=== PATIENT | male | born 1995 | race Caucasian/White ===

== ENCOUNTER 2019-06-21 17:54 | Emergency (ER) | payer SELFPAY ==
[2019-06-21] MEDS ORDERED: CLINDAMYCIN HCL 150 MG CAPSULE PO ONE (18:46)
[2019-06-21] MEDS ORDERED: HYDROCODONE/ACETAMINOPHEN 5-325 MG TABLET PO ONE (18:46)
--- NOTE | 2019-06-21 18:51 | ER Document Report ---
HPI - HPI Time Seen by Provider: 06/21/19 18:42 Notes: Otherwise healthy 24-year-old male presenting to the emergency department chief complaint of dental pain. Patient reports pain in the right lower side of his mouth. He thinks he got a piece of food stuck a few days ago and has had pain s jamel then. Denies any direct trauma to the area, denies any fever. Past Medical History - General Information source: Patient - Social History Smoking Status: Never Smoker Frequency of alcohol use: None Drug Abuse: None Family History: Reviewed & Not Pertinent - Medical History Medical History: Negative Surgical Hx: Negative - Immunizations Immunizations up to date: Yes Vertical Provider Document - CONSTITUTIONAL Notes: PHYSICAL EXAMINATION: GENERAL: Well-appearing, well-nourished and in no acute distress. HEAD: Atraumatic, normocephalic. EYES: Pupils equal round extraocular movements intact, conjunctiva are normal. ENT: Nares patent, erythema and irritation noted around tooth #18 and 19, no obvious drainable abscess. No fluctuance. Mild facial swelling noted. No trismus NECK: Normal range of motion LUNGS: No respiratory distress Musculoskeletal: Normal range of motion NEUROLOGICAL: Normal speech, normal gait. PSYCH: Normal mood, normal affect. SKIN: Warm, Dry, normal turgor, no rashes or lesions noted. Course - Re-evaluation Re-evalutation: We will start patient on oral antibiotics for dental infection. Patient understands the need to follow-up with a dentist. - Vital Signs Vital signs: Temp Pulse Resp BP Pulse Ox 97.9 F 84 18 142/70 H 98 06/21/19 18:26 06/21/19 18:26 06/21/19 18:26 06/21/19 18:26 06/21/19 18:26 Discharge - Discharge Clinical Impression: Dental infection Condition: Stable Disposition: HOME, SELF-CARE Additional Instructions: You have been seen for dental pain. It is very important that you follow-up with a dentist for definitive care. Please return if you develop fever greater than 101, swelling in your face, vomiting, difficulty breathing or swallowing, or any other symptoms that are concerning to you. For pain you should take ibuprofen 800 mg every 8 hours as needed. Prescriptions: Clindamycin HCl 300 mg PO TID #21 capsule
[2019-06-21 19:44] VITALS: BP 130/74
== END 2019-06-21 19:49 | disposition home or self-care (01) ==
LOC: ER 17:54
DX: K04.7 Periapical abscess without sinus (principal); K08.89 Other specified disorders of teeth and supporting structures
CPT/HCPCS: 99282

== ENCOUNTER 2019-07-09 14:28 | Emergency (ER) | payer MEDICAID ==
[2019-07-09 14:53] VITALS: BP 157/86
--- NOTE | 2019-07-09 15:09 | ER Document Report ---
HPI - HPI Patient complains to provider of: DENTAL PAIN Time Seen by Provider: 07/09/19 15:00 Pain Level: 4 Context: 24-year-old male presents emergency department with complaints of dental pain to the right side of his lower mouth. Reports he needs his wisdom teeth removed. Reports he was here at the beginning of the month for the same took the antibiotics the swelling and pain went away but he was never able to follow-up with a dentist. He reports past couple days he started having swelling on the right side of his face again. He reports he plans on following up with the dentist within the next week. He reports fever but only at night. Not taking his temperature just sweating. Associated Symptoms: Fever - AT NIGHT ONLY Exacerbated by: Denies Relieved by: Denies Similar symptoms previously: Yes Recently seen / treated by doctor: Yes - REPRODUCTIVE Reproductive: DENIES: : Past Medical History - General Information source: Patient - Social History Smoking Status: Current Some Day Smoker Chew tobacco use (# tins/day): No Frequency of alcohol use: None Drug Abuse: None Occupation: [employer] Family History: Reviewed & Not Pertinent Patient has suicidal ideation: No Patient has homicidal ideation: No Pulmonary Medical History: Reports: Hx Asthma Past Surgical History: Reports: Hx Orthopedic Surgery - right elbow - Immunizations Immunizations up to date: Yes Vertical Provider Document - CONSTITUTIONAL Agree With Documented VS: Yes Exam Limitations: No Limitations General Appearance: WD/WN, No Apparent Distress - INFECTION CONTROL TRAVEL OUTSIDE OF THE [place] IN LAST 30 DAYS: No - HEENT HEENT: Atraumatic, Normocephalic. negative: Conjuctival Injection Mouth Diagram: 1 - Patient complains of pain opens mouth wide clear voice with some swelling no pustule noted no trismus no Emilio's - NECK Neck: Normal Inspection, Supple. negative: Lymphadenopathy-Left, Lymphadenopathy-Right - RESPIRATORY Respiratory: Breath Sounds Normal, No Respiratory Distress - CARDIOVASCULAR Cardiovascular: Regular Rate, Regular Rhythm - GI/ABDOMEN Gastrointestinal: Abdomen Non-Tender - MUSCULOSKELETAL/EXTREMETIES Musculoskeletal/Extremeties: GAMAL KING - NEURO Level of Consciousness: Awake, Alert, Appropriate Motor/Sensory: No Motor Deficit - DERM Integumentary: Warm, Dry Course - Re-evaluation Re-evalutation: 07/09/19 24-year-old male presents emergency department with dental pain. Was here approximately 3 weeks ago for the same. Never followed up with a dentist. He is opening his mouth wide no trismus no Emilio's. Reports he is planning on following up with dentist next week. We discussed dentist he can follow-up with. I attempted to contact several dentist but none are open at this time. Patient was instructed on clindamycin. Instructed take Tylenol or Motrin as indicated for pain. He verbalized understanding to all instructions. - Vital Signs Vital signs: Temp Pulse Resp BP Pulse Ox 98.6 F 92 16 157/86 H 97 07/09/19 14:52 07/09/19 14:52 07/09/19 14:52 07/09/19 14:52 07/09/19 14:52 Discharge - Discharge Clinical Impression: Pain, dental Condition: Stable Disposition: HOME, SELF-CARE Instructions: Clindamycin ([facility]), Dentist, Toothache ([facility]) Additional Instructions: *You have been evaluated for dental pain *Take medications as prescribed Take Tylenol or Motrin as indicated for pain *Follow up with dentist within 1 week *Return to ED for worsening condition, changes, needs, concerns Prescriptions: Clindamycin HCl [Cleocin 300 mg Capsule] 300 mg PO TID #21 capsule Forms: Elevated Blood Pressure
== END 2019-07-09 15:10 | disposition home or self-care (01) ==
LOC: ER 14:28
DX: K08.89 Other specified disorders of teeth and supporting structures (principal); R22.0 Localized swelling, mass and lump, head; F17.200 Nicotine dependence, unspecified, uncomplicated
CPT/HCPCS: 99282